=== PATIENT | female | born 1940 | race Caucasian/White ===

== ENCOUNTER 2016-12-25 10:45 | Emergency (ER) | payer MEDICARE ==
--- NOTE | ~2016-12-25 | ER ---
PATIENT'S NAME: OTTONIEL MALIN [facility] AGE: 76 Y [address] ROOM: [place] [id number] LOCATION: [facility] ADMIT DATE: 12/25/2016 ER/Outpatient Report DISCHARGE DATE: 12/25/2016 FAMILY PHYSICIAN: Physician, Unknown ATTENDING PHYSICIAN: Hansel Rivera TIME OF ARRIVAL: 1045 hours. TIME OF EVALUATION: 1045 hours. CHIEF COMPLAINT: Dizziness. HISTORY OF PRESENT ILLNESS: The patient is a 76-year-old female who presents to the emergency department today with a chief complaint of dizziness. She is accompanied by her daughter. Daughter reports she has done similar symptoms like this in the past where she complains of symptoms and has nothing wrong with her. Daughter does report that this occurs about every 3 months. 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 She was bending over, playing with a train with a little boy when she got very dizzy. She went down to a knee. She did not actually fall. She did not actually pass out. Did not lose consciousness. She denies any fevers or chills. No nausea or vomiting. No diarrhea or constipation. No chest pain. No shortness of breath. PAST MEDICAL HISTORY: Dementia. PAST SURGICAL HISTORY: Appendectomy, bladder surgery, and cholecystectomy. SOCIAL HISTORY: The patient lives with her daughter in [place]. Denies any tobacco, alcohol, or illicit drug use. ALLERGIES: PENICILLIN AND SULFA. MEDICATIONS: Please see list. PRIMARY CARE DOCTOR: PATIENT'S NAME: OTTONIEL MALIN [facility] AGE: 76 Y [address] ROOM: [place] [address] LOCATION: [facility] ADMIT DATE: 12/25/2016 ER/Outpatient Report DISCHARGE DATE: 12/25/2016 FAMILY PHYSICIAN: Physician, Unknown ATTENDING PHYSICIAN: Hansel Rivera PA-C REVIEW OF SYSTEMS: All systems are reviewed by myself and are negative with the exception of those discussed in the HPI and Past Medical History. PHYSICAL EXAMINATION: VITAL SIGNS: Weight 61 kg, blood pressure 161/72, pulse 76, respiratory rate 16, temperature 97.8, and oxygen saturation 96% on room air. GENERAL: The patient is a 76-year-old female who appears stated age, in no acute distress at this time. HEENT: Head is normocephalic and atraumatic. Pupils are equal, round, and reactive to light and accommodation. Extraocular motions are intact. Nares are patent bilaterally. TMs are clear. Oropharynx is clear. NECK: Supple. There is no nuchal rigidity. CARDIOVASCULAR: Regular rate and rhythm. No murmurs, rubs, or gallops. LUNGS: Clear to auscultation bilaterally. No wheezes, rales, or rhonchi. ABDOMEN: Soft, nontender, and nondistended. No rebound, rigidity, or guarding. MUSCULOSKELETAL: The patient moves all 4 extremities. NEUROLOGICAL: GCS 15. Alert and oriented x4. Downward-going toes. No clonus. Equal manager mechanical maintenance strength bilaterally. No pronator drift. SKIN: Warm and dry. LABORATORY AND X-RAY DATA: Labs and x-rays are obtained. CT scan of the head and C-spine are obtained. I have discussed the results with the radiologist, shows no acute process. EKG is obtained, is interpreted by myself, shows sinus rhythm with a rate of 81, normal axis, normal interval. No ST elevation, ST depression, or T-wave inversions. Lactate is normal. CBC is normal. CMP is normal. LFTs normal. Magnesium is normal. Cardiac enzymes normal. Free T4 is normal. TSH is normal. ProBNP is 634. Procalcitonin is less than 0.05. Urinalysis is negative. IMPRESSION: 1. Dizziness. 2. Initial visit. EMERGENCY DEPARTMENT COURSE: The patient was brought back to the examination room. Seen and evaluated by myself. IV was established. Laboratory analysis and imaging were obtained as described above. The patient was given 1 L of normal saline IV. The results were obtained. I have discussed the results with the patient. The daughter reports she is at her baseline at this time. She is up and ambulating throughout the emergency department without any issues at this time. Denies PATIENT'S NAME: OTTONIEL MALIN [facility] AGE: 76 Y [address] ROOM: [place], [place] [address] LOCATION: [facility] ADMIT DATE: 12/25/2016 ER/Outpatient Report DISCHARGE DATE: 12/25/2016 FAMILY PHYSICIAN: Physician, Unknown ATTENDING PHYSICIAN: Hansel Rivera any chest pain. No shortness of breath. With the patient's history and physical as well as normal laboratory analysis, I feel she is safe for further outpatient evaluation by her primary care doctor, Geovany Dias. We have discussed I would like her to follow up in the next 1 to 2 days for reevaluation. I have discussed return to care instructions including chest pain, shortness of breath, or any other concerns, to return to the emergency department as soon as possible. The daughter is agreeable. The patient is agreeable. They are without further questions at this time. DISPOSITION: The patient is discharged to home in good condition. DO KRISTEN MERCEDES/sebastian /[id number] d: 12/25/16 1344 t: 12/27/16 0912, OUTPATIENT REPORT
[2016-12-25 11:18] LABS: BASOPHIL # 0.1 K/uL (0.0-0.2); BASOPHIL % 0.8 %; EOSINOPHIL # 0.2 K/uL (0.0-0.5); EOSINOPHIL % 1.8 %; HEMATOCRIT 43.9 % (33.0-46.0); HEMOGLOBIN 14.5 g/dL (10.0-15.0); IMMATURE GRANULOCYTE % 0.2 %; LYMPHOCYTE # 2.4 K/uL (0.8-4.0); LYMPHOCYTE % 24.1 %; MCH 29.2 pg (27.0-34.0); MCV 88.5 fl (83.0-98.0); MONOCYTE # 0.7 K/uL (0.0-1.0); MONOCYTE % 7.3 %; MPV 8.8 fl (9.4-12.4); NEUTROPHIL # (ANC) 6.4 K/uL (1.8-7.8); NEUTROPHIL % 65.8 %; NRBC % 0 /100WBC (0-0.00); PLATELET COUNT 300 K/uL (150-450); RBC 4.96 M/uL (3.50-5.50); RDW-CV 13.5 % (11.9-14.6); WBC 9.8 K/uL (4.0-11.0)
[2016-12-25 11:43] LABS: ALBUMIN 3.4 gm/dL (3.5-5.0); ALK PHOS 90 IU/L (33-138); ALT 26 IU/L (12-78); ANION GAP 11.9 (10.0-19.0); AST 26 IU/L (10-40); BLOOD UREA NITROGEN 9 mg/dL (6-24); CALCIUM 8.6 mg/dL (8.5-10.5); CHLORIDE 108 mMol/L (96-110); CO2 29 mMol/L (22-32); CPK 65 IU/L (21-215); CREATININE 0.9 mg/dL (0.5-1.1); ESTIMATED GFR (MDRD EQUATION) > 60; MAGNESIUM 2.4 mg/dL (1.3-2.6); POTASSIUM 3.9 mMol/L (3.7-5.1); SODIUM 145 mMol/L (135-145); TOTAL BILIRUBIN 0.4 mg/dL (0.0-1.5); TOTAL PROTEIN 7.3 g/dL (6.0-8.4)
[2016-12-25 11:58] LABS: PROTIME 10.3 SECONDS (9.6-11.1); PTT 27 SECONDS (25-32)
[2016-12-25 12:15] LABS: BILIRUBIN URINE NEGATIVE (NEGATIVE); BLOOD URINE NEGATIVE /UL (NEGATIVE); COLOR URINE YELLOW (YELLOW); GLUCOSE URINE NEGATIVE (NEGATIVE); KETONE URINE NEGATIVE (NEGATIVE); LEUKOCYTES URINE NEGATIVE /UL (NEGATIVE); NITRITE URINE NEGATIVE (NEGATIVE); PROTEIN URINE NEGATIVE (NEGATIVE); TURBIDITY URINE 1+ (CLEAR); UROBILINOGEN URINE NORMAL (NORMAL)
[2016-12-25 12:22] LABS: AMORPHOUS URINE 3+ (NEGATIVE); BACTERIA URINE NEGATIVE (NEGATIVE); EPITHELIAL URINE NEGATIVE #/HPF (NEGATIVE); RBC URINE RARE #/HPF (NEGATIVE); WBC URINE 0-2 #/HPF (NEGATIVE)
== END 2016-12-25 12:45 | disposition disaster alternative care site (69) ==
LOC: GMED 10:45 → EDBD 10:45 → GMED 12:45
PROVIDERS: Emergency Medicine
DX: R42 Dizziness and giddiness (principal); F03.90 Unspecified dementia, unspecified severity, without behavioral disturbance, psychotic disturbance, mood disturbance, and anxiety; Z90.89 Acquired absence of other organs; Z90.49 Acquired absence of other specified parts of digestive tract; Z88.1 Allergy status to other antibiotic agents; Z88.2 Allergy status to sulfonamides

== ENCOUNTER → 2016-12-25 | Outpatient (CLI) | payer MEDICARE | END | disposition disaster alternative care site (69) | LOC: GAMB 10:11 | DX: R41.82 Altered mental status, unspecified (principal); R40.20 Unspecified coma; F03.90 Unspecified dementia, unspecified severity, without behavioral disturbance, psychotic disturbance, mood disturbance, and anxiety ==